=== PATIENT | female | born 1975 | race Hispanic/Latino ===

== ENCOUNTER 2017-08-20 10:57 | Outpatient (CLI) | payer OTHER ==
--- NOTE | 2017-09-09 14:51 | MMO ---
BILATERAL SCREENING MAMMOGRAMS: Date: 08/20/17 Comparison made to film from [employer] dated 08/05/14. This patient's mammogram was interpreted with the assistance of computer-aided detection. FINDINGS: Heterogeneously dense glandular pattern. There are scattered nodular densities which appear stable. N o distortion or suspicious calcification. No interval change noted. Recommend one year follow-up. IMPRESSION: BIRADS 2: Benign Finding(s) POS: [facility]HT[facility]
== END 2017-08-20 10:58 | disposition home or self-care (01) ==
LOC: MAMMO 10:57
PROVIDERS: ATTEND Student in an Organized Health Care Education/Training Program
DX: Z12.31 Encounter for screening mammogram for malignant neoplasm of breast (principal)
CPT/HCPCS: 77067; G0202

== ENCOUNTER 2017-11-25 11:35 | Outpatient (CLI) | payer OTHER ==
[2017-11-25 13:11] LABS: Hemoglobin 14.8 g/dL (12.0-16.0); Mean Corpuscular HGB CONC 33.8 g/dL (32.0-36.0); Mean Corpuscular Hemoglobin 29.6 pg (27.0-31.0); Mean Corpuscular Volume 87.7 fl (81.0-99.0); Mean Platelet Volume 9.9 fL (7.4-10.4); Platelet Count 214 thou/uL (130-400); RBC Distribution Width 12.5 % (11.5-14.5)
[2017-11-25 13:48] LABS: BHCG - Serum Negative (NEGATIVE); Pregs Control Background? CLEAR/WHITE (CLR/WHITE); Pregs Control Bar Appear? YES (CONTROL BAR)
== END 2017-11-25 11:36 | disposition home or self-care (01) ==
LOC: LABBT 11:35
PROVIDERS: ATTEND Obstetrics & Gynecology
DX: Z01.818 Encounter for other preprocedural examination (principal); N83.202 Unspecified ovarian cyst, left side; Z80.41 Family history of malignant neoplasm of ovary
CPT/HCPCS: 84703; 85027; 86850; 86900; 86901

== ENCOUNTER 2017-11-26 05:45 | Day surgery (SDC) | payer OTHER ==
[2017-11-25 12:22] VITALS: BMI 36.9
[2017-11-26] MEDS ORDERED: CEFAZOLIN/Water 2 GM/20 ML SYRINGE ONE (06:09)
[2017-11-26] MEDS ORDERED: Midazolam HCl 2 mg/2 ml Vial ONE (06:14)
[2017-11-26] MEDS ORDERED: Fentanyl 100 MCG/2 ML VIAL ONE (06:14)
[2017-11-26] MEDS ORDERED: Bupivacaine 0.25% HCL 30 ML VIAL ONE (06:55)
[2017-11-26] MEDS ORDERED: Lidocaine 2% w/Epinephrine 1:200K 20 ML VIAL ONE (06:55)
[2017-11-26] MEDS ORDERED: Dexamethasone 20 MG/5 ML VIAL ONE (14:19)
[2017-11-26] MEDS ORDERED: PHENYLEPHRINE-NS 100 MCG/ML 10 ML SYRINGE ONE (14:19)
[2017-11-26] MEDS ORDERED: Ondansetron HCl/PF 4 MG/2 ML Vial ONE (14:19)
[2017-11-26] MEDS ORDERED: Propofol 200 MG/20 ML VIAL ONE (14:19)
[2017-11-26] MEDS ORDERED: Lidocaine 1% PF 5 ML VIAL ONE ×2 (14:19)
[2017-11-26] MEDS ORDERED: Ketorolac Tromethamine 30 MG/ML VIAL ONE (14:19)
[2017-11-26] MEDS ORDERED: Glycopyrrolate 0.2 MG/ML 5 ML SYRINGE ONE (14:19)
--- NOTE | 2017-11-26 18:48 | OP ---
PREOPERATIVE DIAGNOSES: Moderately large complex multiloculated left ovarian cystic mass, positive f amily history of maternal ovarian cancer. POSTOPERATIVE DIAGNOSES: Moderately large complex multiloculated left ovarian cystic mass, positive family history of maternal ovarian cancer. Pathology pending. PROCEDURES PERFORMED: Laparoscopic left salpingo-oophorectomy with a right salpingectomy. SURGEON: Dr. Sathya Acevedo. ACCOUNTS RECEIVABLE EXECUTIVE: Dr. Niharika Yanez. ANESTHESIA: General endotracheal by Dr. Snell and INTERMISSION COORDINATOR, see their notes for details. OPERATIVE FINDINGS: Included a 4 cm cystic mass that did not appear to have any solid areas within i t after it was removed on the left ovary, normal appearing right ovary, normal uterus and normal fall opian tubes, no other abdominal abnormalities seen on laparoscopy and video photographs available. OPERATIVE COMPLICATIONS: None. BLOOD LOSS: Less than 25 mL DRAINS: There were no drains. Sage was used during surgery. DESCRIPTION OF PROCEDURE: The patient was taken to the operating room where she had already been giv en informed consent, she was given a general anesthetic, which required using the video scope to do a nd she was prepped and draped and placed in lithotomy position. A bimanual exam was done and then a bivalve speculum was placed in the vagina, single tooth tenaculum placed on the cervix and a Hulka ma nipulator was placed within the uterine cavity. The laparoscopic portion of the case was done in the usual fashion anesthetizing each of the small 5 mm and then 11 mm port sites. There were three 5 mm ports, one placed in the umbilicus for the camer a, one placed laterally on either side and the suprapubic port was placed with a larger trocar. These were all done under local anesthetic and under visualization with the exception of the Veress n eedle been inserted and then the laparoscopic port was placed with a pressure in the abdomen to 15 mm Hg. Good visualization was obtained. The patient was placed in Steep Trendelenburg position. The LigaSure device was used to systematically coagulate and then cut the infundibulopelvic ligament on the left and the uteroovarian ligament on the left and ovary was dropped in the pelvis and there w as no evidence of any bleeding points and the salpingectomy was done on the right side with the LigaS ure, taking the mesosalpinx down from the fallopian tube with the LigaSure and then transecting the t ube about a cm above the uterine fundus. This tube was dropped into the pelvis. The pelvis was insp ected and irrigated. Please note, the pelvic washings were performed prior to any other operative in terventions in this patient. The Endobag was placed through the 11 mm port and the adnexa and the fallopian tube were placed in th e bag and brought up through the abdominal incision. The trocar removed and the bag opened and the o varian cyst was ruptured and suctioned out without spillage into the abdomen and then the solid porti ons of the ovary and fallopian tube were brought out through that bag until the bag size was reduced enough to remove the entire bag. The fascial and peritoneal incisions were on the larger port site and were closed with the trocar es sure set with a needle and 0 Vicryl suture. This gave good closure with almost complete variceal and then the subcutaneous tissue and subcuticular tissue was closed with a running 3-0 plain suture here and then Monocryl was used on the smaller other incisions subcuticularly and Dermabond was placed on all the wounds. The vagina was reinspected after the Hulka tenaculum was removed and there was bleeding from one of t he tenaculum sites and this did not respond to silver nitrate. It was not very heavy bleeding, but i t was then cauterized with 30 crespo coagulation current on that port and there was no further bleedin g. Vaginal blood was removed. The patient was again taken to the recovery room having tolerated the procedure and anesthesia well.
--- NOTE | 2017-11-26 20:21 | DIS ---
(See the history and physical, operative note, and pathology report for further details). Basically, this was a 42-year-old single multipara who has a Nexplanon in and had been found sometime back to have a complex left ovarian cyst. She had been lost to follow up and then reappeared when s he had her Nexplanon replaced back in late August. She is now having surgical removal of this comp gita ovarian cyst, particularly even though it had not changed significantly in size and there were no other worrisome characteristics such as free fluid in the abdomen or pain. Her mother had just a year before from ovarian cancer. It is of note that her cancer screening and genetic studies were negative. HOSPITAL COURSE: On 11/26/2017, she underwent a laparoscopic left salpingo-oophorectomy and right vanessa pingectomy as a cancer-sparing procedure that was approved by the Medical Ethics Department. She the procedure well and within approximately 2 hours, she felt to be ready for discharge, surgery was uncomplicated. Mass was removed intact through the bag after initial pelvic cell washings were s ubmitted prior to the removal of the specimen, and within approximately 2 hours, the nurse felt that she was ready for discharge. Her vital signs were normal. She had no significant nausea, pain and h ad received Ofirmev and Toradol intravenously in the operating room. Video photographs were shown to the daughter and given to the family to take home, she has a prescrip tion for Vicodin for pain. IMPRESSION/FINAL DIAGNOSIS: Now status post laparoscopic left salpingo-oophorectomy and right salpin gectomy for a complex left adnexal mass, known Nexplanon user. Plan is to discharge home on oral nonnarcotic pain medicines with backup Vicodin #20, 1-2 every 4 jordy rs as needed for severe pain with no refill.
== END 2017-11-26 11:10 | disposition home or self-care (01) ==
LOC: SDC 05:45
PROVIDERS: ATTEND Obstetrics & Gynecology
PROC: 0UT14ZZ Resection of Left Ovary, Percutaneous Endoscopic Approach (ICD-10-PCS; principal; 2017-11-26)
PROC: 0UT74ZZ Resection of Bilateral Fallopian Tubes, Percutaneous Endoscopic Approach (ICD-10-PCS; principal; 2017-11-26)
DX: D27.1 Benign neoplasm of left ovary (principal); Z80.41 Family history of malignant neoplasm of ovary
CPT/HCPCS: 88112; 88302; 88305; J0131; J1100; J1885; J2001; J2250; J2405; J2704; J3010; S0020

== ENCOUNTER 2018-09-20 20:10 | Emergency (ER) | payer OTHER, SELFPAY | END 2018-09-20 22:25 | disposition home or self-care (01) | LOC: ERS 20:10 | DX: L03.011 Cellulitis of right finger (principal) | CPT/HCPCS: 10060 ==

== ENCOUNTER 2018-12-08 17:16 | Outpatient (CLI) | payer OTHER | END 2018-12-08 17:17 | disposition home or self-care (01) | LOC: BICMAMMO 17:16 | PROVIDERS: ATTEND Student in an Organized Health Care Education/Training Program | DX: Z12.31 Encounter for screening mammogram for malignant neoplasm of breast (principal) | CPT/HCPCS: 77063; 77067 ==

== ENCOUNTER 2019-07-21 15:13 | Outpatient (CLI) | payer OTHER ==
--- NOTE | 2019-07-21 15:29 | RAD ---
Exam:Left humerus 2 views HISTORY: Pain. Evaluate for implanted control device. COMPARISON: None FINDINGS: No fracture. No cortical irregularity. No periosteal reaction. No radiopaque foreign body. IMPRESSION: No radiopaque foreign body.
== END 2019-07-21 15:14 | disposition home or self-care (01) ==
LOC: BICRAD 15:13
PROVIDERS: ATTEND Obstetrics & Gynecology
DX: M79.602 Pain in left arm (principal)

== ENCOUNTER 2019-07-28 17:07 | Emergency (ER) | payer OTHER ==
--- NOTE | 2019-07-28 19:24 | RAD ---
XR Humerus Lt 2 View STANDARD: 07/28/2019 6:12 PM CLINICAL INDICATION: Abscess, foreign body evaluation COMPARISON: None. FINDINGS: Fracture:No fracture. Arthropathy:None of significance. Incidental findings:None of significance. No radiopaque foreign body is seen. IMPRESSION: 1. No acute osseous abnormality.
== END 2019-07-28 19:00 | disposition home or self-care (01) ==
LOC: ERS 17:07
DX: L03.114 Cellulitis of left upper limb (principal)

== ENCOUNTER 2019-09-30 21:33 | Emergency (ER) | payer OTHER | END 2019-09-30 22:09 | disposition home or self-care (01) | LOC: ERS 21:33 | DX: J11.1 Influenza due to unidentified influenza virus with other respiratory manifestations (principal) | CPT/HCPCS: 99283 ==

== ENCOUNTER 2022-07-27 12:20 | Outpatient (CLI) | payer BC | END 2022-07-27 12:21 | disposition home or self-care (01) | LOC: BICMAMMO 12:20 | PROVIDERS: ATTEND Physician Assistant | DX: Z12.31 Encounter for screening mammogram for malignant neoplasm of breast (principal); N64.89 Other specified disorders of breast | CPT/HCPCS: 77063; 77067 ==

== ENCOUNTER 2022-08-06 12:53 | Outpatient (CLI) | payer BC | END 2022-08-06 12:54 | disposition home or self-care (01) | LOC: BICMAMMO 12:53 | PROVIDERS: ATTEND Physician Assistant | DX: D24.2 Benign neoplasm of left breast (principal); N63.21 Unspecified lump in the left breast, upper outer quadrant; N60.82 Other benign mammary dysplasias of left breast; N64.9 Disorder of breast, unspecified; N60.32 Fibrosclerosis of left breast; Z98.890 Other specified postprocedural states | CPT/HCPCS: 19083; 88305; G0279 ==